=== PATIENT | male | born 1960 | race Caucasian/White ===

== ENCOUNTER 2016-07-23 09:30 | Inpatient (IN) | payer BC, OTHER ==
--- NOTE | 2016-07-14 15:39 | GHP ---
[f rep st] PREOP HISTORY AND PHYSICAL DATE OF ADMISSION: The patient will be an a.m. admission for surgery at [facility] on July 23, 2016. PROBLEM: Left hip arthritis. HISTORY OF PRESENT ILLNESS: The patient is a 55-year-old man admitted for a left hip Iron hip resurfacing arthroplasty. He has been aware of some soreness in the hip with certain activities for a couple of years. Since March of 2016, his left hip pain has been much worse. He is having daily pain and night pain. Walking is painful. Pivoting and rotation are painful. His activities are quite limited. He has been using Advil and Tylenol regularly. He has trouble putting on his shoes and socks on the left foot. No history of prior surgery, physical therapy, or cortisone injections. PAST MEDICAL HISTORY: He is treated for elevated cholesterol. Otherwise, he is very healthy. No history of heart disease, stents, DVT, or hepatitis. He has sleep apnea. He occasionally uses a CPAP machine. CURRENT MEDICATIONS: Trazodone for sleep. Atorvastatin 20 mg per day for cholesterol. No history of previous serious MRSA staph infections. DRUG ALLERGIES: None. METAL ALLERGY: None. LATEX ALLERGY: None. 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 He does not smoke cigarettes and occasionally drinks alcohol. His fiancee will be helping him following discharge from the hospital. FAMILY HISTORY: Unremarkable. PHYSICAL EXAMINATION: GENERAL: He is a muscular, fit-appearing man. VITAL SIGNS: Height 6 feet, weight 210 pounds. BMI 28.5. EYES: The conjunctivae and sclerae are clear. Pupils are round and reactive. MOUTH: Good oral hygiene. No loose teeth. CHEST: Clear. HEART: Regular rhythm. No murmurs. EXTREMITIES: Pertinent findings limited to his left hip. He has full hip extension and 90 degrees of flexion. As he flexes the hip, he develops a 10- degree external rotation contracture and has no further internal or external rotation. Abduction 30 degrees. He has well-developed thigh musculature. He is very muscular throughout the chest and shoulders. IMAGING: His films show advanced degenerative arthritis of the left hip. He is [id number]. He has a CAM lesion. IMPRESSION ON ADMISSION: 1. Left hip advanced degenerative arthritis. He is prepared for a left BHR. 2. Treatment for elevated cholesterol. PLAN: He will undergo a left hip [place] hip resurfacing arthroplasty. This surgery has been described to him including the risks, complications, expectations, and recovery time. I have discussed with him specifically the risk of femoral neck fracture, dislocation, sciatic nerve injury and infection. We have discussed in detail the risk of metal ions in the blood and in the soft tissues around the hip joint. He understands that he is very young for any type of hip arthroplasty and may need revision surgery in the future. I have offered him the alternative of a conventional total hip replacement. All his questions have been answered and he consents to surgery. /[id number]/MODL MTDD
[2016-07-14 17:27] LABS: % IMMATURE GRANULYOCYTES 0.3 % (0.0-1.1); ABSOLUTE IMMATURE GRANULOCYTES 0.02 10^3/uL (0.00-0.10); ADD DIFF? NO; ADD MORPH? NO; ADD SCAN? NO; ATYPICAL LYMPHOCYTE FLAG 0 (0-99); FRAGMENT RBC FLAG 0 (0-99); HEMATOCRIT 51.1 % (40.0-51.0); HEMOGLOBIN 18.2 g/dL (13.7-17.5); LEFT SHIFT FLG 0 (0-99); LIPEMIA HEMOLYSIS FLAG 90 (0-99); MEAN CELL HEMOGLOBIN 32.2 pg (27.9-34.1); MEAN CELL HEMOGLOBIN CONCENTR. 35.6 g/dL (32.4-36.7); MEAN CELL VOLUME 90.3 fL (81.5-99.8); MEAN PLATELET VOLUME 9.8 fL (8.7-11.7); PLATELET CLUMPS FLAG 0 (0-99); PLATELET COUNT 147 10^3/uL (150-400); RED BLOOD CELL COUNT 5.66 10^6/uL (4.40-6.38)
[~2016-07-23 09:30] MED LIST: ACETAMINOPHEN 325 MG TAB ONE; ACETAMINOPHEN 325 MG TAB PO ONE; CEFAZOLIN 2 GM/DEXTR 100 ML IV ONE; CEFAZOLIN 2 GM/DEXTROSE/100 ML BAG IV ONE; CHLORHEXIDINE GLUC HIBICLENS 118 ML BTL TP ONE; DEXAMETHASONE 4 MG/ML VIAL IVP ONE; DEXAMETHASONE 4 MG/ML VIAL ONE; FAMOTIDINE 20 MG TAB ONE; FAMOTIDINE 20 MG TAB PO ONE; POVIDONE-IODINE 20 ML in SODIUM CL IRRIG SOLUTION 500 ML IRR ONE; PROPOFOL/EMULSION 500 MG/50 ML BOTTLE IV ONE; ROPI/epiNEPH/KETOROLAC JOINT COCKTAIL IU ONE; SKIN ADHESIVE (DERMABOND) 1 EACH TP ONE; TRANEXAMIC ACID 1,900 MG in NS 100 ML IV ONE; ceFAZolin 1 GM/5 ML SYR ONE; fentaNYL 100 MCG/2 ML INJ ONE
[2016-07-23] MEDS ORDERED: LIDOCAINE 1% 5 ML SDV ID PRN (10:01)
[2016-07-23] MEDS ORDERED: LR 1,000 ML IV ONE (10:01)
[2016-07-23] MEDS ORDERED: MIDAZOLAM 2 MG/2 ML VIAL ONE (11:42)
[2016-07-23] MEDS ORDERED: fentaNYL 100 MCG/2 ML INJ ONE (12:37)
[2016-07-23] MEDS ORDERED: PROPOFOL/EMULSION 500 MG/50 ML BOTTLE IV ONE ×2 (12:42→13:18)
--- NOTE | 2016-07-23 13:51 | POSTOPPROG ---
Post Op Note Date of Operation: 07/23/16 Surgeon: Amaury Kapadia Machine Riveter: Luz/Finn Anesthesiologist: Ronel Anesthesia: IV Sedation, Spinal Post-op Diagnosis: L hip arthritis Procedure: L BHR Inf/Abcess present in the surg proc area at time of surgery?: No EBL: 100-500
[2016-07-23] MEDS ORDERED: TEMAZEPAM 15 MG CAP PO PRN (14:03)
[2016-07-23] MEDS ORDERED: KETOROLAC 30 MG/1 ML SDV IVP PRN (14:03)
[2016-07-23] MEDS ORDERED: diphenhydrAMINE 25 MG CAP PO PRN (14:03)
[2016-07-23] MEDS ORDERED: ONDANSETRON 4 MG/2 ML VIAL IVP PRN (14:03)
[2016-07-23] MEDS ORDERED: METOCLOPRAMIDE 10 MG/2 ML VIAL IVP PRN (14:03)
[2016-07-23] MEDS ORDERED: PROMETHAZINE HCL 25 MG SUPPR PR PRN (14:03)
[2016-07-23] MEDS ORDERED: POLYETHYLENE GLYCOL 3350 17 GM PKT PO PRN (14:03)
[2016-07-23] MEDS ORDERED: NS 500 ML IV PRN (14:03)
[2016-07-23] MEDS ORDERED: BISACODYL 10 MG SUPP PR PRN (14:03)
[2016-07-23] MEDS ORDERED: ONDANSETRON DISINTEGRATING 4 MG TAB PO PRN (14:03)
[2016-07-23] MEDS ORDERED: LACTULOSE 20 GM/30 ML UDCUP PO PRN (14:03)
[2016-07-23] MEDS ORDERED: DIPHENOXYLATE/ATROPINE LOMOTIL 1 TAB PO PRN (14:03)
[2016-07-23] MEDS ORDERED: traMADol 50 MG TAB PO PRN (14:03)
[2016-07-23] MEDS ORDERED: CYCLOBENZAPRINE 10 MG TAB PO PRN (14:03)
[2016-07-23] MEDS ORDERED: MAGNESIUM HYDROXIDE 30 ML UDCUP PO PRN (14:03)
[2016-07-23] MEDS ORDERED: PHARMACY PAIN CONSULT 1 EA MISC PRN (14:03)
--- NOTE | 2016-07-23 14:22 | GOP ---
[f rep st] OPERATIVE REPORT DATE OF OPERATION: 07/23/2016 SURGEON: Amaury Kapadia MD GRUBBER: Agus Escobar [facility] and Eliseo Briseno, PAC. ANESTHESIA: Marcaine spinal and IV sedation. ANESTHESIOLOGIST: Osvaldo Rodney MD. PREOPERATIVE DIAGNOSIS: Left hip severe degenerative arthritis. POSTOPERATIVE DIAGNOSIS: Left hip severe degenerative arthritis. PROCEDURE PERFORMED: 07/23/2016, a left hip Iron hip resurfacing arthroplasty. FINDINGS: ESTIMATED BLOOD LOSS: About 400 mL. I used a [employer] [place] hip resurfacing system. The acetabular component was 54 mm in diameter and press-fit. The femoral head was 48 mm and cemented. He was awakened from anesthesia and rolled to the supine position on his [facility]. A long-leg compressive stocking and SCD were applied. He wore a stocking and SCD on the opposite leg during the procedure. An abduction pillow was placed between his knees. He was taken to PACU in satisfactory condition. There were no recognized intraoperative complications. The sponge and needle count were correct on 2 occasions. Agus Escobar and Matthew Briseno acted as surgical assistants. Their assistance was a medical necessity. DESCRIPTION OF PROCEDURE: The patient was given 2 g of IV Ancef preoperatively within 60 minutes of surgery. He also received IV tranexamic acid at a dose of 20 mg/kg. He was placed on the operating room table and given spinal anesthesia with Marcaine by Dr. Rodney. He was then placed supine and given IV sedation. A Mcbride catheter was not used. He wore a compressive stocking and SCD on the nonoperative leg. He was rolled to the right lateral decubitus position. An axillary roll was used and all pressure points were carefully padded. The position was secured with the pegboard table attachment. I was careful to lock his pelvis in a rigid vertical position. His perineum was isolated with plastic adhesive drapes. The left hip and left lower extremity were prepped with ChloraPrep. They were draped free using sterile sheets, stockinette, and Ioban plastic drape. The World [employer] Organization time-out was performed to verify the correct patient identity and the correct surgical side. The Herod time-out was also performed. I made a 7-inch straight oblique posterolateral hip skin incision. Subcutaneous tissues were sharply divided and hemostasis was obtained using electrocautery. The fascia victor manuel was identified and split along the axis of its fibers. I curved posteriorly and proximally and split the fascia of gluteus antoine and bluntly split the muscle fibers. He had very muscular buttocks with a large gluteus antoine. He also had very well-developed external rotators. The sciatic nerve was identified and protected throughout the procedure. The Charnley self-retaining retractor was inserted. The external rotators and the posterior hip capsule were divided as separate layers at the base of the femoral neck, tagged and reflected posteriorly. The gluteus antoine tendon was divided and tagged in order to improve exposure and release tension on the sciatic nerve. His hip was dislocated posteriorly. He had an excessive amount of synovial fluid in the joint. I used a sizing gauge to check the diameter of the neck and concluded that 48 mm was the proper head size. 48 seemed small for a man his size; however, I checked the sizing very carefully and confirmed that 48 mm was the proper size. I performed a circumferential capsulotomy. I was able to retract the femoral head anteriorly and superiorly and hold it out of place with appropriate retractors. The remnant of the damaged labrum was excised. His acetabulum was reamed sequentially up to 54 mm. I selected the [place] monoblock porous-coated acetabular component with an outside diameter of 54 mm. This was firmly impacted and was a very tight fit. I was careful to determine proper inclination and anteversion. I used the transverse acetabular ligament and other acetabular bony landmarks to help me properly orient the cup. Posterior inferior osteophytes were removed with a rongeur. I was careful to leave a lip of bone and capsule extending beyond the anterior-inferior lip of the metal cup. I then returned to preparation of the femoral head. Using appropriate jigs and guides, I inserted a guide pin into the femoral head and neck. I was careful to position in such a way there would be no notching of the neck. The large sterile metal goniometer was used to check the neck shaft angle. I reamed over the guide pin and inserted a reaming guide. I then used the cylindrical reamer down to the head and neck junction. This was followed by the flat reamer and the chamfer reamer. The head was sized for 48 mm. There was no impingement or damage to the neck. He had some small anterior neck osteophytes which were removed with a rongeur. I drilled a small hole in the lesser trochanter and inserted a suction cannula to create negative pressure in the medullary canal. Small holes were drilled on the flattened chamfer surfaces of the prepared head for cement anchors. The head was thoroughly cleaned with the pulsating lavage and carefully dried. I used a CarboJet device to blow dry the cancellous surfaces. A single batch of Simplex cement with tobramycin was mixed. At about 50 seconds, I poured the liquid cement into the head component, inserted on the femoral head, and impacted it into place. Excess cement was removed before it hardened. The acetabulum was irrigated, cleaned, and inspected, and the hip was reduced. Stability and range of motion were checked. I placed my finger along the anterior aspect of the acetabular component and flexed the hip to 110 degrees. There was no anterior impingement. The suction cannula on the lesser trochanter was removed. The wound was thoroughly irrigated with a dilute Betadine solution. 40 mL of the joint anesthetic cocktail were injected into the capsule, the deep musculature and the subcutaneous tissues along the skin edges. The sciatic nerve was reinspected and looked unharmed. The external rotators and the posterior hip capsule were repaired in separate layers with #2 FiberWire sutures through drill holes in the greater trochanter. This provided a strong posterior capsular and external rotator repair. The gluteus antoine was repaired with 2 interrupted [id number] #2 FiberWire sutures. The fascia victor manuel was closed first with 2 interrupted [id number] #2 FiberWire sutures, followed by a running #2 barbed Ethicon Stratafix PDO suture. Subcutaneous tissues were closed with a running 0 barbed Ethicon Stratafix Monoderm suture. The skin was closed with a running 3-0 barbed Ethicon Stratafix Monoderm subcuticular suture. The skin edges were reapproximated and sealed with Dermabond glue. The wound was covered with a strip of Telfa, and everything was held in place with a piece of clear plastic Tegaderm. /[id number]/MODL MTDD
[2016-07-23] MEDS ORDERED: LR 1,000 ML IV SCH (14:30)
[2016-07-23] MEDS ORDERED: ATORVASTATIN CALCIUM 20 MG TAB PO SCH (21:00)
[2016-07-23] MEDS ORDERED: traZODone 50 MG TAB PO SCH (21:00)
[2016-07-23] MEDS: ACETAMINOPHEN 325 MG TAB PO SCH (21:39)
[2016-07-23] MEDS: TRANEXAMIC ACID 650 MG TAB PO SCH ×2 (22:18→22:24)
[2016-07-23] MEDS: FAMOTIDINE 20 MG TAB PO SCH (22:19)
[2016-07-23] MEDS: SENNOSIDES/DOCUSATE SODIUM TAB PO SCH (22:20)
[2016-07-23] MEDS: ceFAZolin 2 GM/DEXTROSE 100 ML IV SCH (22:20)
[2016-07-24] MEDS: oxyCODONE IR 5 MG TAB PO PRN ×2 (02:31→09:50)
[2016-07-24] MEDS: ceFAZolin 2 GM/DEXTROSE 100 ML IV SCH (04:12)
[2016-07-24 05:16] LABS: HEMATOCRIT 42.7 % (40.0-51.0); HEMOGLOBIN 15.1 g/dL (13.7-17.5)
[2016-07-24] MEDS: ACETAMINOPHEN 325 MG TAB PO SCH ×2 (06:02)
--- NOTE | 2016-07-24 07:24 | SOAPPROG ---
SOAP Progress Note Assessment/Plan: Assessment: Afebrile. Awake and alert. Mod pain. Has been up and walking. Dsg is dry. Needed cath 1 X last night, but voiding spont now. H/H is good. Films look good. Plan: Up with PT Home later today. 07/24/16 07:23 Objective: Vital Signs Temp Pulse Resp BP Pulse Ox 36.8 C 51 L 14 117/73 95 07/24/16 04:00 07/24/16 04:00 07/24/16 04:00 07/24/16 04:00 07/24/16 04:00 Laboratory Results 07/24/16 04:40 07/23/16 07/24/16 07/25/16 05:59 05:59 05:59 Intake Total 2350 Output Total 700 Balance 1650 ICD10 Worksheet Patient Problems: Problems Problem Status Onset Primary osteoarthritis of left hip Acute
[2016-07-24] MEDS: FAMOTIDINE 20 MG TAB PO SCH (07:57)
[2016-07-24] MEDS: SENNOSIDES/DOCUSATE SODIUM TAB PO SCH (07:57)
[2016-07-24] MEDS: TRANEXAMIC ACID 650 MG TAB PO SCH (07:57)
[2016-07-24] MEDS: ASPIRIN 325 MG TAB PO SCH ×2 (07:57)
--- NOTE | 2016-07-24 08:24 | GDS ---
[f rep st] DISCHARGE SUMMARY ADMISSION DIAGNOSIS: Left hip severe degenerative arthritis. DISCHARGE DIAGNOSIS: Left hip severe degenerative arthritis. OPERATIONS PERFORMED: On 07/23/2016, a left hip Iron hip resurfacing arthroplasty. POSTOPERATIVE COMPLICATIONS: None. CONDITION ON DISCHARGE: Improved. DESCRIPTION OF HOSPITAL COURSE: The patient was admitted to the hospital on the morning of surgery. His admission CBC was normal. The same day, under a combination of spinal anesthesia with Marcain e and IV sedation, he underwent a left hip Iron hip resurfacing arthroplasty. Postoperatively , he was treated with multimodal DVT prophylaxis including aspirin and early mobilization. On the 1 st postoperative day, his hemoglobin and hematocrit were 15.1 and 42.7. He did not require any lee sfused blood. He was seen by Physical Therapy and made good progress with ambulation and stairs. Henry martins did require urinary catheterization on the evening of surgery but was able to void spontaneously a fter that. DISPOSITION: The patient is discharged to his home. He will go to outpatient physical therapy. He may progress to full weightbearing on the left as tolerated. Use an abduction pillow in bed for 3 weeks. Continue aspirin 325 mg p.o. daily for 21 days. Continue MASHA stockings for 1 week. He has prescriptions for oxycodone and tramadol for pain control. I will see him back in the office on Aug. If any problems, he is to call me at the office. /[id number]/MODL
[2016-07-24] MEDS ORDERED: Herbals/Supplements -Info Only PO SCH (09:00)
[2016-07-24] MEDS ORDERED: OMEGA-3 FATTY ACIDS 1,000 MG CAP PO SCH (09:00)
[2016-07-24] MEDS ORDERED: FERROUS SULFATE 140 MG TAB.ER PO SCH (09:00)
[2016-07-24 10:41] VITALS: BP 121/63; PULSE 56; RESP 18; TEMP 97.6; O2SAT 93
== END 2016-07-24 11:09 | disposition home or self-care (01) | DRG 470 ==
LOC: F3E 09:34 → F3N 19:35
PROVIDERS: ADMIT Orthopaedic Surgery; ATTEND Orthopaedic Surgery
PROC: 0SUB0BZ Supplement Left Hip Joint with Resurfacing Device, Open Approach (ICD-10-PCS; principal; 2016-07-23 09:30)
DX: M16.12 Unilateral primary osteoarthritis, left hip (principal); E78.00 Pure hypercholesterolemia, unspecified
CPT/HCPCS: 97116-GP; 97161-GP; 97165-GO; C1713; C1769; G8987-GO-CI; G8988-GO-CI; G8989-GO-CI; J0171; J0690; J1100; J1885; J2250; J2405; J2704; J2795; J3010

== ENCOUNTER → 2018-07-14 | Outpatient (CLI) | payer OTHER | LOC: FCP 17:20 ==

== ENCOUNTER → 2018-09-13 | Outpatient (CLI) | payer OTHER ==
[~2018-09-13] MED LIST changes: -ACETAMINOPHEN 325 MG TAB ONE; -ACETAMINOPHEN 325 MG TAB PO ONE; -CEFAZOLIN 2 GM/DEXTR 100 ML IV ONE; -CEFAZOLIN 2 GM/DEXTROSE/100 ML BAG IV ONE; -CHLORHEXIDINE GLUC HIBICLENS 118 ML BTL TP ONE; -DEXAMETHASONE 4 MG/ML VIAL IVP ONE; -DEXAMETHASONE 4 MG/ML VIAL ONE; -FAMOTIDINE 20 MG TAB ONE; -FAMOTIDINE 20 MG TAB PO ONE; +IOPAMIDOL (ISOVUE 370) 100 ML BTL IV ONE; -POVIDONE-IODINE 20 ML in SODIUM CL IRRIG SOLUTION 500 ML IRR ONE; -PROPOFOL/EMULSION 500 MG/50 ML BOTTLE IV ONE; -ROPI/epiNEPH/KETOROLAC JOINT COCKTAIL IU ONE; -SKIN ADHESIVE (DERMABOND) 1 EACH TP ONE; -TRANEXAMIC ACID 1,900 MG in NS 100 ML IV ONE; -ceFAZolin 1 GM/5 ML SYR ONE; -fentaNYL 100 MCG/2 ML INJ ONE
== END ==
LOC: FIMAGING 13:55
PROVIDERS: ATTEND Internal Medicine Interventional Cardiology
DX: I28.8 Other diseases of pulmonary vessels (principal); J90 Pleural effusion, not elsewhere classified; I25.10 Atherosclerotic heart disease of native coronary artery without angina pectoris; J98.11 Atelectasis; M51.36 Other intervertebral disc degeneration, lumbar region
CPT/HCPCS: Q9967